=== PATIENT | female | born 1940 | race Caucasian/White ===

== ENCOUNTER → 2017-03-23 | Outpatient (CLI) | payer OTHER ==
[~2017-03-23] MED LIST: IOPAMIDOL (ISOVUE-300) 100 ML BTL ONE
== END ==
LOC: FIMAGING 10:18
PROVIDERS: ATTEND Internal Medicine
DX: J98.11 Atelectasis (principal); J98.4 Other disorders of lung
CPT/HCPCS: 71260; Q9967

== ENCOUNTER 2017-04-20 11:40 | Day surgery (SDC) | payer OTHER ==
[2017-04-20] MEDS ORDERED: ASPIRIN EC 325 MG TAB PO ONE (11:43)
[2017-04-20] MEDS ORDERED: DIAZEPAM 5 MG TAB PO ONE (11:43)
[2017-04-20] MEDS ORDERED: FAMOTIDINE 20 MG TAB PO ONE (11:43)
[2017-04-20] MEDS ORDERED: diphenhydrAMINE 25 MG CAP PO ONE (11:43)
[2017-04-20] MEDS ORDERED: NS 1,000 ML IV ONE (11:43)
--- NOTE | 2017-04-20 12:09 | CPEKG ---
Heart Rate: 64 RR Interval: 938 P-R Interval: 160 QRSD Interval: 78 QT Interval: 444 QTC Interval: 458 P [place]: 60 QRS [place]: 1 T Wave [place]: 47 EKG Severity - BORDERLINE ECG - EKG Impression: SINUS RHYTHM EKG Impression: PROBABLE LEFT ATRIAL ABNORMALITY EKG Impression: NON SPECIFIC ST/T WAVE CHANGES IN LATERAL LEADS Electronically Signed By: Adrien Calderon 20-Apr-2017 16:05:15
[2017-04-20 12:21] LABS: % IMMATURE GRANULYOCYTES 0.3 % (0.0-1.1); ABSOLUTE IMMATURE GRANULOCYTES 0.02 10^3/uL (0.00-0.10); ADD DIFF? NO; ADD MORPH? NO; ADD SCAN? NO; ATYPICAL LYMPHOCYTE FLAG 10 (0-99); FRAGMENT RBC FLAG 0 (0-99); HEMATOCRIT 36.5 % (38.0-47.0); HEMOGLOBIN 12.3 g/dL (12.6-16.3); LEFT SHIFT FLG 0 (0-99); LIPEMIA HEMOLYSIS FLAG 80 (0-99); MEAN CELL HEMOGLOBIN 27.8 pg (27.9-34.1); MEAN CELL HEMOGLOBIN CONCENTR. 33.7 g/dL (32.4-36.7); MEAN CELL VOLUME 82.4 fL (81.5-99.8); MEAN PLATELET VOLUME 10.8 fL (8.7-11.7); PLATELET CLUMPS FLAG 0 (0-99); PLATELET COUNT 220 10^3/uL (150-400); RED BLOOD CELL COUNT 4.43 10^6/uL (4.18-5.33); RED CELL DISTRIBUTION WIDTH 15.1 % (11.5-15.2)
[2017-04-20 12:29] LABS: INR 0.94 (0.83-1.16); PROTIME(PATIENT) 12.5 SEC (12.0-15.0)
[2017-04-20] MEDS ORDERED: LIDOCAINE 1% 300 MG/30 ML SDV ONE (12:35)
[2017-04-20] MEDS ORDERED: MIDAZOLAM 2 MG/2 ML VIAL ONE (12:35)
[2017-04-20] MEDS ORDERED: fentaNYL 100 MCG/2 ML INJ ONE (12:35)
[2017-04-20] MEDS ORDERED: IOPAMIDOL (ISOVUE-370) 150 ML BTL IV ONE (12:36)
[2017-04-20] MEDS ORDERED: HEPARIN 10,000 UNIT/10 ML MDV ONE (12:36)
[2017-04-20] MEDS ORDERED: VERAPAMIL 5 MG/2 ML VIAL ONE (12:36)
[2017-04-20 12:39] LABS: ANION GAP 11 mEq/L (8-16); CALCIUM 9.5 mg/dL (8.5-10.4); CARBON DIOXIDE 25 mEq/l (22-31); CHLORIDE 105 mEq/L (97-110); CHOLESTEROL 170 mg/dL (140-220); CHOLESTEROL/HDL RATIO 2.46 RATIO (1.00-4.44); CREATININE 0.8 mg/dL (0.6-1.0); GLOMERULAR FILTRATION RATE > 60; GLUCOSE 94 mg/dL (70-100); HIGH DENSITY LIPOPROTEIN 69 mg/dL (40-85); LDL/HDL RATIO 1.32 RATIO (1.00-3.22); LOW DENSITY LIPOPROTEIN 91 mg/dL (80-100); MAGNESIUM 2.1 mg/dL (1.6-2.3); NON-HIGH DENSITY LIPOPROTEIN 101 mg/dL (90-129); POTASSIUM 3.9 mEq/L (3.5-5.2); SODIUM 141 mEq/L (134-144); TRIGLYCERIDE 50 mg/dL (35-135); VERY LOW DENSITY LIPOPROTEINS 10 mg/dL (8-25)
--- NOTE | 2017-04-20 19:41 | CPIP ---
[f rep st] INVASIVE CARDIAC PROCEDURE DATE OF PROCEDURE: 04/20/2017 INDICATIONS: The patient is a pleasant 77-year-old female, typically followed as an outpatient by Parminder Dixon. She has had progressive symptoms of exertional dyspnea, currently [facility] Functional Class II/III. She had an abnormal stress myocardial perfusion imaging study indic ating inferoseptal reversible ischemia. She is referred for cardiac catheterization to evaluate for underlying obstructive coronary disease, and evaluate for pulmonary hypertension. PROCEDURE: Diagnostic right and left heart catheterization, coronary angiography, left ventriculogr aphy. TECHNIQUE: Following informed consent, the patient was brought in a fasting state to the cardiac ca theterization laboratory. Both her right groin and left wrist were prepped. Using modified [place] er technique, access was gained to the left brachial vein, and a 6-Georgian sheath was placed. Using a modified Seldinger technique, access was attempted at the left radial artery. While we did access the radial artery and got excellent arterial return; unfortunately, the patient developed an abrupt hematoma indicating local vascular trauma. As a result, the procedure was aborted and manual press ure was held. At this point, we changed our approach to the right groin. 2% lidocaine was infiltra torrie in the skin overlying the femoral artery and vein. Using modified Seldinger technique, a 7-Fren ch venous sheath and a 6-Georgian arterial sheath were placed. Using the PWP catheter, a full right h eart catheterization was performed, and using a standard multipack, orthogonal imaging was performed of the coronary arteries, and a left ventriculogram was performed. Following the procedure, all ca theters were removed from the body, and the femoral arteriotomy was closed. FINDINGS: HEMODYNAMICS: Pulmonary capillary wedge pressure was 12 mmHg; pulmonary artery pressure 48/17/29 mmHg; right ventr icular pressure 46/2/6 mmHg; right atrial pressure 1 mmHg. Left ventricular pressure 160/6/17 mmHg; aortic pressure 146/57/94 mmHg. Pulmonary artery saturation 60.7%; aortic saturation 85.9%, with a calculated cardiac output by Sarah of 4.63 L/minute, and an index of 2.97 L/minute per sq meter. ANGIOGRAPHY: Right coronary artery: The right coronary artery is a large dominant vessel. The PDA is identified , as well as a large posterolateral branch. The right coronary artery and its branch vessels are an giographically free of disease. Left main: The left main is a large caliber vessel, bifurcating into the left anterior descending a nd circumflex distributions. The left main is angiographically free of disease. Left anterior descending: The left anterior descending is a large caliber transapical vessel with a single diagonal branch. The left anterior descending branch vessels are angiographically free of d isease. Circumflex: The circumflex is moderate in caliber within the AV groove. There are 2 obtuse margina l branches identified. The circumflex and its branch vessels are angiographically free of disease. LEFT VENTRICULOGRAPHY: The ejection fraction is normal at 55% to 60%. There are no focal wall tricia on abnormalities. There is no significant mitral regurgitation. IMPRESSION: 1. Angiographically normal epicardial coronary arteries. 2. Preserved left ventricular systolic function without wall motion abnormalities. 3. No identified valvular heart disease. 4. Evidence of moderate pulmonary arterial hypertension. RECOMMENDATIONS: At this point, the patient has no primary cardiac etiology to explain her symptoms of exertional dyspnea. Her stress myocardial perfusion imaging study is likely false positive. I would recommend the patient be evaluated further by Pulmonology. /[id number]/MODL
== END 2017-04-20 19:09 | disposition home or self-care (01) ==
LOC: FCATH 11:40
PROVIDERS: ATTEND Internal Medicine Cardiovascular Disease
PROC: 4A023N8 Measurement of Cardiac Sampling and Pressure, Bilateral, Percutaneous Approach (ICD-10-PCS; principal; 2017-04-20)
PROC: B2151ZZ Fluoroscopy of Left Heart using Low Osmolar Contrast (ICD-10-PCS; principal; 2017-04-20)
PROC: B2111ZZ Fluoroscopy of Multiple Coronary Arteries using Low Osmolar Contrast (ICD-10-PCS; principal; 2017-04-20)
DX: R94.39 Abnormal result of other cardiovascular function study (principal); R06.09 Other forms of dyspnea; I10 Essential (primary) hypertension; E78.00 Pure hypercholesterolemia, unspecified; R06.02 Shortness of breath; R53.83 Other fatigue; R94.31 Abnormal electrocardiogram [ECG] [EKG]; R00.2 Palpitations; K21.9 Gastro-esophageal reflux disease without esophagitis
CPT/HCPCS: C1760; J1644; J2250; J3010; Q9967

== ENCOUNTER → 2017-08-21 | Outpatient (CLI) | payer OTHER | LOC: FIMAGING 14:27 | PROVIDERS: ATTEND Internal Medicine | DX: Z12.31 Encounter for screening mammogram for malignant neoplasm of breast (principal) | CPT/HCPCS: G0202 ==

== ENCOUNTER → 2017-11-01 | Outpatient (CLI) | payer OTHER | LOC: FIMAGING 10:21 | PROVIDERS: ATTEND Internal Medicine | DX: Z13.820 Encounter for screening for osteoporosis (principal); M81.0 Age-related osteoporosis without current pathological fracture ==

== ENCOUNTER → 2018-08-23 | Outpatient (CLI) | payer OTHER | LOC: FIMAGING 10:48 | PROVIDERS: ATTEND Internal Medicine | DX: Z12.31 Encounter for screening mammogram for malignant neoplasm of breast (principal); Z80.3 Family history of malignant neoplasm of breast ==

== ENCOUNTER → 2019-03-12 | Outpatient (CLI) | payer OTHER | LOC: EMCIMAGING 08:58 | PROVIDERS: ATTEND Internal Medicine | DX: N63.13 Unspecified lump in the right breast, lower outer quadrant (principal) ==